=== PATIENT | female | born 1955 | race Caucasian/White ===

== ENCOUNTER 2017-09-21 22:36 | Emergency (ER) | payer MEDICARE, MEDICAID ==
[~2017-09-21] VITALS: Ht 160 cm; Wt 64.9 kg
[~2017-09-21 22:36] MED LIST: DIPH25CA83 PO
[2017-09-22] MEDS ORDERED: ibuprofen tablet 400 MG TABLET PO ONE (00:55)
[2017-09-22 01:06] VITALS: BP 110/74
== END 2017-09-22 01:13 | disposition home or self-care (01) ==
LOC: ER 22:37
DX: S60.222A Contusion of left hand, initial encounter (principal); I25.10 Atherosclerotic heart disease of native coronary artery without angina pectoris; I25.2 Old myocardial infarction; F17.200 Nicotine dependence, unspecified, uncomplicated; Z98.890 Other specified postprocedural states; Z88.0 Allergy status to penicillin; Z88.5 Allergy status to narcotic agent; Z91.018 Allergy to other foods; Z79.899 Other long term (current) drug therapy; Z79.82 Long term (current) use of aspirin; W23.0XXA Caught, crushed, jammed, or pinched between moving objects, initial encounter; Y93.89 Activity, other specified; Y92.89 Other specified places as the place of occurrence of the external cause; Y99.8 Other external cause status
CPT/HCPCS: 73130; 99284; A6449

== ENCOUNTER 2018-02-08 19:23 | Emergency (ER) | payer MEDICARE, MEDICAID ==
[~2018-02-08] VITALS: Ht 190.5 cm; Wt 59.9 kg
[2018-02-08 19:49] LABS: BASOPHILS % (AUTO) 0.6 % (0-1); EOSINOPHILS # (AUTO) 0.3 X10'3 (0-0.9); EOSINOPHILS % (AUTO) 6.4 % (0-6); HEMATOCRIT 43.6 % (35.0-45.0); HEMOGLOBIN 14.6 g/dl (12.0-16.0); LYMPHOCYTES # (AUTO) 1.7 X10'3 (1.1-4.8); LYMPHOCYTES % (AUTO) 34.2 % (21-51); MEAN CORPUSCULAR HEMOGLOBIN 29.6 PG (27.0-31.0); MEAN CORPUSCULAR HGB CONC 33.5 % (33.0-36.5); MEAN CORPUSCULAR VOLUME 88.4 FL (78-98); MEAN PLATELET VOLUME 6.9 FL (7.4-10.4); MONOCYTES # (AUTO) 0.3 X10'3 (0-0.9); MONOCYTES % (AUTO) 6.8 % (2-12); NEUTROPHILS # (AUTO) 2.6 X10'3 (1.8-7.7); PLATELET COUNT 234 X10'3 (140-440); RED BLOOD COUNT 4.93 X10'6 (4.20-5.60); RED CELL DISTRIBUTION WIDTH 13.8 % (11.5-14.5)
[2018-02-08 20:07] LABS: ALANINE AMINOTRANSFERASE 20 U/L (12-78); ALBUMIN 3.6 G/DL (3.4-5.0); ALBUMIN/GLOBULIN RATIO 1.1 (1.1-1.5); ALKALINE PHOSPHATASE 86 IU/L (46-116); ANION GAP 5 (8-16); ASPARTATE AMINO TRANSFERASE 17 U/L (10-37); BILIRUBIN,TOTAL 0.6 MG/DL (0.1-1.0); BLOOD UREA NITROGEN 16 MG/DL (7-18); CALCIUM 9.2 MG/DL (8.5-10.1); CHLORIDE 105 MMOL/L (99-107); CREATININE 1.14 MG/DL (0.40-0.90); GLUCOSE 110 MG/DL (70-104); POTASSIUM 3.5 MMOL/L (3.5-5.1); SODIUM 140 MMOL/L (135-145); TOTAL CARBON DIOXIDE 29.7 MMOL/L (24-32); eGFR 48 ML/MIN
[2018-02-08 20:09] LABS: PARTIAL THROMBOPLASTIN TIME 28 SECONDS (22-32); PROTHROMBIN TIME 10.1 SECONDS (9.0-12.0)
[2018-02-08] MEDS ORDERED: LORazepam 2 mg/ml vial IV ONE (20:10)
[2018-02-08] MEDS ORDERED: aspirin 325mg tablet PO ONE (20:10)
[2018-02-08] MEDS ORDERED: clopidogrel 300mg tablet PO ONE (20:35)
[2018-02-08 20:43] LABS: D-DIMER 0.24 MG/L FEU (0-0.50)
[2018-02-08] MEDS ORDERED: clopidogrel 75mg tablet PO ONE (20:50)
[2018-02-08 23:42] VITALS: BP 141/77
== END 2018-02-08 23:44 | disposition home or self-care (01) ==
LOC: ER 19:24
DX: R07.89 Other chest pain (principal); I25.10 Atherosclerotic heart disease of native coronary artery without angina pectoris; I25.2 Old myocardial infarction; F17.200 Nicotine dependence, unspecified, uncomplicated; Z98.890 Other specified postprocedural states; Z88.0 Allergy status to penicillin; Z88.5 Allergy status to narcotic agent; Z91.018 Allergy to other foods; Z95.5 Presence of coronary angioplasty implant and graft
CPT/HCPCS: 36415; 71045; 80053; 84484; 85025; 85379; 85610; 85730; 93005; 96374; 99285; J2060

== ENCOUNTER 2019-04-02 16:13 | Emergency (ER) | payer MEDICARE, MEDICAID | END 2019-04-02 17:28 | disposition left against medical advice (07) | LOC: ER 16:14 | DX: R07.89 Other chest pain (principal); Z53.21 Procedure and treatment not carried out due to patient leaving prior to being seen by health care provider | CPT/HCPCS: 93005 ==

== ENCOUNTER 2020-10-28 23:58 | Emergency (ER) | payer MEDICARE, MEDICAID ==
[~2020-10-28] VITALS: Ht 160 cm; Wt 54.5 kg
[2020-10-29] VITALS (8 sets, daily range): BP systolic 103–152; BP diastolic 64–91
[2020-10-29 00:44] LABS: ALANINE AMINOTRANSFERASE 20 U/L (12-78); ALBUMIN 3.8 G/DL (3.4-5.0); ALBUMIN/GLOBULIN RATIO 1.1 (1.1-1.5); ALKALINE PHOSPHATASE 88 IU/L (46-116); ANION GAP 11 (8-16); ASPARTATE AMINO TRANSFERASE 16 U/L (10-37); BILIRUBIN,TOTAL 0.9 MG/DL (0.1-1.0); BLOOD UREA NITROGEN 26 MG/DL (7-18); BUN/CREATININE RATIO 18.7 (6.6-38.0); CALCIUM 8.1 MG/DL (8.5-10.1); CHLORIDE 105 MMOL/L (99-107); CREATININE 1.39 MG/DL (0.40-0.90); GLUCOSE 106 MG/DL (70-104); POTASSIUM 4.2 MMOL/L (3.5-5.1); SODIUM 139 MMOL/L (135-145); TOTAL CARBON DIOXIDE 23.1 MMOL/L (24-32); TOTAL PROTEIN 7.4 G/DL (6.4-8.2); eGFR 38 ML/MIN
[2020-10-29 00:50] LABS: BASOPHILS % (AUTO) 0.5 % (0-1); EOSINOPHILS # (AUTO) 0.1 X10'3 (0-0.9); EOSINOPHILS % (AUTO) 1.1 % (0-6); HEMATOCRIT 43.8 % (35.0-45.0); HEMOGLOBIN 15.1 g/dl (12.0-16.0); LYMPHOCYTES # (AUTO) 1.8 X10'3 (1.1-4.8); LYMPHOCYTES % (AUTO) 25.5 % (21-51); MEAN CORPUSCULAR HEMOGLOBIN 30.1 PG (27.0-31.0); MEAN CORPUSCULAR HGB CONC 34.5 g/dL (33.0-36.5); MEAN CORPUSCULAR VOLUME 87.2 FL (78-98); MEAN PLATELET VOLUME 7.5 FL (7.4-10.4); MONOCYTES # (AUTO) 0.5 X10'3 (0-0.9); MONOCYTES % (AUTO) 6.7 % (2-12); NEUTROPHILS # (AUTO) 4.7 X10'3 (1.8-7.7); NEUTROPHILS % (AUTO) 66.2 % (42-75); PLATELET COUNT 254 X10'3 (140-440); RED BLOOD COUNT 5.02 X10'6 (4.20-5.60); RED CELL DISTRIBUTION WIDTH 13.7 % (11.5-14.5); WHITE BLOOD COUNT 7.1 X10'3 (4.5-11.0)
[2020-10-29] MEDS ORDERED: acetaminophen 325mg tablet PO ONE (01:35)
[2020-10-29] MEDS ORDERED: ondansetron 4mg rapidly disintigrating tab PO ONE (01:35)
[2020-10-29] MEDS ORDERED: ondansetron 4mg rapidly disintigrating tab PO PRN (01:50)
[2020-10-29] MEDS ORDERED: diphenhydrAMINE 25mg capsule PO PRN (01:50)
[2020-10-29] MEDS ORDERED: acetaminophen 650mg rectal suppository RC PRN (01:50)
[2020-10-29] MEDS ORDERED: diphenhydrAMINE 50 mg/ml inj IV PRN (01:50)
[2020-10-29] MEDS ORDERED: HYDROcodone/acetaminophen 5mg/325mg tablet PO PRN (01:50)
[2020-10-29] MEDS ORDERED: mag hydrox/Alum hydrox/simeth 30ml oral suspension PO PRN (01:50)
[2020-10-29] MEDS ORDERED: ondansetron/PF 4mg/2ml inj IV PRN (01:50)
[2020-10-29] MEDS ORDERED: regadenoson 0.4mg/5ml syringe IV PRN (01:50)
[2020-10-29] MEDS ORDERED: metoprolol tartrate 1mg/ml inj IV PRN (01:50)
[2020-10-29] MEDS ORDERED: bisacodyl 10mg suppository rectal RC PRN (01:50)
[2020-10-29] MEDS ORDERED: dextrose 5%-1/2 normal saline 1,000 ML IV SCH (01:50)
[2020-10-29] MEDS ORDERED: magnesium hydroxide 30ml (MOM) UD suspension PO PRN (01:50)
[2020-10-29] MEDS ORDERED: nitroGLYCERIN 0.4mg SUBLingual tab SL PRN ×2 (01:50)
[2020-10-29] MEDS ORDERED: aminophylline 250mg/10ml inj. IV PRN (01:50)
[2020-10-29] MEDS ORDERED: morphine 2 MG/ML inj. syringe IV PRN (01:50)
[2020-10-29] MEDS ORDERED: acetaminophen 325mg tablet PO PRN ×2 (01:50)
[2020-10-29] MEDS ORDERED: nicotine 21mg patch - 24 hr TD ONE (02:15)
[2020-10-29] MEDS ORDERED: ASPI81TA PO (04:00)
[2020-10-29] MEDS ORDERED: IBUP-860 PO (04:02)
[2020-10-29 04:15] LABS: D-DIMER 0.22 MG/L FEU (0-0.50); PARTIAL THROMBOPLASTIN TIME 24 SECONDS (22-32)
[2020-10-29 04:34] LABS: CREATINE KINASE 137 U/L (26-192); LIPASE 73 U/L (73-393); MAGNESIUM 2.1 MG/DL (1.5-2.4); PHOSPHORUS 3.9 MG/DL (2.3-4.5)
[2020-10-29 05:05] LABS: HEMOGLOBIN A1C 5.8 % (4.5-6.2)
--- NOTE | 2020-10-29 07:01 | NUR ---
pt will be going for stress test in an hour as per told by online media director who came to see the pt .
[2020-10-29] MEDS ORDERED: pantoprazole 40mg Tablet.DR PO SCH (07:30)
--- NOTE | 2020-10-29 07:30 | NUR ---
dr rogers at bedside doing the rounds.will cont to monitor. Addendum: 10/29/[address] rogers was at bedside around 0745 am.
--- NOTE | 2020-10-29 07:36 | NUR ---
MEDS HELD AT THIS TIME BECAUSE PT HAS TO GO TO STRESS TEST ,INSTRUCTION TO KEEP THE PT NPO.
[2020-10-29] MEDS ORDERED: aspirin 81mg tablet.DR PO SCH (08:00)
[2020-10-29] MEDS ORDERED: atorvastatin 10mg tablet PO SCH (08:00)
[2020-10-29] MEDS ORDERED: docusate sod 100mg capsule PO SCH (08:00)
[2020-10-29] MEDS ORDERED: metoprolol tartrate 25mg tablet PO SCH (08:00)
[2020-10-29] MEDS ORDERED: heparin, porcine 5000 units/ml vial SQ SCH (08:00)
[2020-10-29] MEDS ORDERED: nitroGLYCERIN 0.2mg/hour patch TD SCH (08:00)
--- NOTE | 2020-10-29 08:05 | NUR ---
pt using restroom at this time urine specimen cup given to the pt ,pt accomapined by family member .
--- NOTE | 2020-10-29 08:44 | NUR ---
pt went for [place].
[2020-10-29 09:43] LABS: URINE AMPHETAMINE SCREEN POSITIVE (Neg); URINE BARBITUATE SCREEN NEGATIVE (Neg); URINE BENZODIAZEPINES SCREEN NEGATIVE (Neg); URINE CANNABINOID SCREEN NEGATIVE (Neg); URINE COCAINE SCREEN NEGATIVE (Neg); URINE METHADONE SCREEN NEGATIVE (Neg); URINE OPIATE SCREEN NEGATIVE (Neg); URINE PHENCYCLIDINE SCREEN NEGATIVE (Neg)
--- NOTE | 2020-10-29 10:02 | NUR ---
pt still at [facility] dmin meds when pt come back.
--- NOTE | 2020-10-29 10:24 | NUR ---
pt back to ed room 10 ,will medicate the pt.
--- NOTE | 2020-10-29 10:52 | NUR ---
pt was c/o headache 9/10 ,tearful , at bedside ,pt medicated with norco.will reassess the pain in few mins.
--- NOTE | 2020-10-29 11:59 | NUR ---
informed the charge nurse that pt has d/c orders and pt has room assisgnment and there is no point to transport the pt upstairs .as per ezio charge dart nurse will d/c the pt when its ready.
[2020-10-29] MEDS ORDERED: temazepam 15mg capsule PO PRN (21:00)
--- NOTE | 2020-11-02 13:16 | NUR ---
Case management DC follow up: MBF will try again at another time/day
== END 2020-10-29 12:16 | disposition home or self-care (01) ==
LOC: ER 23:59 → UNDOADMIN 10-29 01:50 → ED HOLD 10-29 01:50 → UNDODISIN 10-29 12:16 → ER 10-29 12:16
DX: R07.89 Other chest pain (principal); I25.10 Atherosclerotic heart disease of native coronary artery without angina pectoris; I25.2 Old myocardial infarction; Z98.890 Other specified postprocedural states; Z88.0 Allergy status to penicillin; Z88.5 Allergy status to narcotic agent; Z79.82 Long term (current) use of aspirin
CPT/HCPCS: 36415; 71045; 78452; 80053; 80305; 82550; 83036; 83690; 83735; 83880; 84100; 84443; 84484; 85025; 85379; 85610; 85730; 87081; 93005; 93017; 96360; 96372; 99285; A9500; J1644; J2785; G0378